=== PATIENT | female | born 1930 | race Caucasian/White ===

== ENCOUNTER → 2017-08-19 | Day surgery (SDC) | payer MEDICARE ==
[~2017-08-19] MED LIST: LIDOCAINE 2% 100 MG/5 ML SYRINGE.; PROPOFOL 20 ML IV
[2017-08-19] MEDS: IV RINGERS,LACTATED 1000ML 1,000 ML IV (09:24)
== END | disposition home or self-care (01) ==
LOC: ENDOS 08:56
DX: K22.2 Esophageal obstruction (principal); K44.9 Diaphragmatic hernia without obstruction or gangrene; K31.7 Polyp of stomach and duodenum; E78.00 Pure hypercholesterolemia, unspecified; I10 Essential (primary) hypertension; E11.9 Type 2 diabetes mellitus without complications; Z86.718 Personal history of other venous thrombosis and embolism; Z90.49 Acquired absence of other specified parts of digestive tract; Z88.2 Allergy status to sulfonamides; Z87.39 Personal history of other diseases of the musculoskeletal system and connective tissue
CPT/HCPCS: 43235; J2704

== ENCOUNTER 2020-02-02 12:43 | Emergency (ER) | payer MEDICARE ==
[~2020-02-02] VITALS: Ht 162.6 cm; Wt 72.7 kg
[~2020-02-02 12:43] MED LIST changes: +AMLO5TAB10 PO; +BENA10TA55 PO; +ESOM40CA PO; +LEVO75TA5 PO; -LIDOCAINE 2% 100 MG/5 ML SYRINGE.; -PROPOFOL 20 ML IV; +SIMV40TA18 PO; +SPIR1TAB PO; +SPIR25TA5 PO
[2020-02-02 12:45] VITALS: BP 148/77
[2020-02-02] MEDS ORDERED: DEXAMETHASONE 4 MG TABLET PO ONE (13:15)
[2020-02-02] MEDS ORDERED: valACYclovir 500 MG TABLET. PO ONE (13:15)
[2020-02-02] MEDS ORDERED: VALA10008 PO (13:16)
[2020-02-02] MEDS ORDERED: TRAM50TA PO (13:16)
[2020-02-02] MEDS ORDERED: POLY119P4 PO (13:16)
[2020-02-02] MEDS ORDERED: PRED20TA PO (13:16)
[2020-02-02] MEDS ORDERED: SENN-121 PO (13:16)
--- NOTE | 2020-02-02 13:16 | PHYS DOC ---
Past Medical History Past Medical History: COPD, GERD, High Cholesterol, Hypertension, Hypothyroid Past Surgical History: Cholecystectomy, Hysterectomy, Knee Replacement, Other Additional Past Surgical Histo: foreign body removal from throat Smoking Status: Never Smoker Alcohol Use: Rarely Drug Use: None General Adult EDM: Chief Complaint: ABDOMINAL PAIN HPI: HPI: Patient is a 89 year old female presents with 2-day history of right-sided abdominal pain. Reports has noticed a rash to that same region. Denies any nausea or vomiting. Denies diarrhea. Patient does report some issues with constipation. Denies fever or chills. Denies known trauma. Review of Systems: Review of Systems: Constitutional: Denies fever or chills Eyes: Denies redness or eye pain HENT: Denies nasal congestion or sore throat Respiratory: Denies cough or shortness of breath Cardiovascular: Denies chest pain or palpitations GI: Reports abdominal pain and constipation; denies nausea, vomiting, or diarrhea : Denies dysuria or hematuria Musculoskeletal: Denies back pain or joint pain Integument: Reports rash and skin lesions Neurologic: Denies headache, focal weakness or sensory changes Complete systems were reviewed and found to be within normal limits, except as documented in this note. Allergies: Allergies: Allergies Coded Allergies Type Severity Reaction Last Updated Verified Sulfa (Sulfonamide Antibiotics) Allergy Intermediate 08/19/17 Yes Physical Exam: PE: Constitutional: Well developed, well nourished, no acute distress, non-toxic appearance HENT: Normocephalic, atraumatic Eyes: Conjunctiva normal, no discharge Neck: Normal range of motion, no tenderness, supple Lungs & Thorax: No respiratory distress, equal chest rise and fall Abdomen: Soft, no tenderness, no guarding/rebound tenderness/distention Skin: Warm, dry, no erythema, tender vesicular rash noted to right mid abdomen extending from back and not crossing midline Back: No tenderness, no CVA tenderness Extremities: No tenderness, ROM intact, no edema Neurologic: Alert and oriented X 3, no focal deficits noted Psychologic: Affect normal, judgment normal EKG: EKG: [] Radiology/Procedures: Radiology/Procedures: [] Course & Med Decision Making: Course & Med Decision Making Patient presents with HPI and physical exam consistent for shingles. Patient also reports some constipation issues. Antiviral and steroid provided. Will prescribe stool softeners and laxative. Patient also will receive prescription for pain medication. Patient stable for discharge with outpatient follow-up with PCP. Discussed findings and plan with patient, who acknowledges understanding and agreement. Freddie Disclaimer: Freddie Disclaimer: This electronic medical record was generated, in whole or in part, using a voice recognition dictation system. Departure Departure Impression: Primary Impression: Shingles Qualified Codes: B02.9 - Zoster without complications Additional Impression: Constipation Qualified Codes: K59.00 - Constipation, unspecified Disposition: HOME, SELF-CARE Condition: STABLE Referrals: Elpidio PERRY MD (PCP) Patient Instructions: Constipation, Adult, [id number], Shingles, [id number] Additional Instructions: Increase fluid hydration. Hold stool softners for 1-3 days after taking laxative. DO NOT take stool softners if you are having diarrhea. Scripts Polyethylene Glycol 3350 (MIRALAX) 119 Gm Powder 1 TBS PO DAILY PRN for CONSTIPATION, #119 GM Prov: KISHA SINCLAIR DO 02/02/20 Sennosides/Docusate Sodium (Colace 2-in-1 Tablet) 1 Each Tablet 1 TAB PO QHS for CONSTIPATION, #30 TAB 0 Refills Prov: KISHA SINCLAIR DO 02/02/20 Tramadol Hcl (TRAMADOL HCL) 50 Mg Tablet 50 MG PO Q6HRS PRN for PAIN, #14 TAB Prov: KISHA SINCLAIR DO 02/02/20 Valacyclovir Hcl (VALACYCLOVIR) 1,000 Mg Tablet 1 TAB PO TID for 7 Days, #21 TAB Prov: KISHA SINCLAIR DO 02/02/20 Prednisone (PREDNISONE) 20 Mg Tablet 2 TAB PO DAILY, #8 TAB Start this medication tomorrow, Tuesday02/03/20 Prov: KISHA SINCLAIR DO 02/02/20 Justicifation of Admission Dx: Justifications for Admission: Justification of Admission Dx: N/A KISHA SINCLAIR DO Feb 02, 2020 13:16
== END 2020-02-02 13:38 | disposition home or self-care (01) ==
LOC: ER 12:43
DX: K59.00 Constipation, unspecified (principal); B02.9 Zoster without complications; J44.9 Chronic obstructive pulmonary disease, unspecified; E78.00 Pure hypercholesterolemia, unspecified; I10 Essential (primary) hypertension; E03.9 Hypothyroidism, unspecified; Z90.49 Acquired absence of other specified parts of digestive tract; Z90.710 Acquired absence of both cervix and uterus; Z98.890 Other specified postprocedural states; Z88.2 Allergy status to sulfonamides
CPT/HCPCS: 99284